=== PATIENT | male | born 1985 | race African-American/Black ===

== ENCOUNTER 2023-05-01 18:57 | Inpatient (IN) | payer OTHER ==
[2023-05-01 19:25] VITALS: BMI 25.0
[2023-05-02] MEDS ORDERED: guaiFENesin 600 MG TABLET.ER (FP) PO PRN (00:15)
[2023-05-02] MEDS ORDERED: ACETAMINOPHEN 325 MG TABLET (FP) PO PRN (00:15)
[2023-05-02] MEDS ORDERED: BENZONATATE 200 MG CAPSULE PO PRN (00:15)
[2023-05-02] MEDS ORDERED: BENZOCAINE/MENTHOL (CHLORASEPTIC ) LOZENGE MM PRN (00:15)
[2023-05-02] MEDS ORDERED: NICOTINE POLACRILEX 2 MG GUM BUC PRN (00:15)
[2023-05-02] MEDS ORDERED: NALOXONE HCL 0.4 MG/ML VIAL IM PRN (00:15)
[2023-05-02] MEDS ORDERED: POLYETHYLENE GLYCOL (HEALTHYLAX) 3350 17 GM PACKET PO PRN (00:15)
[2023-05-02] MEDS ORDERED: LOPERAMIDE HCL 2 MG CAPSULE PO PRN (00:15)
[2023-05-02] MEDS ORDERED: NALOXONE HCL (KLOXXADO) 8 MG SPRAY NS PRN (00:15)
[2023-05-02] MEDS ORDERED: IBUPROFEN 400 MG TABLET (FP) PO PRN (00:15)
[2023-05-02] MEDS ORDERED: IBUPROFEN 600 MG TABLET (FP) PO PRN (00:15)
[2023-05-02 10:05] LABS: HEMOGLOBIN 15.9 GM/dL (11.7-16.9); MCHC 35.2 g/dl (32.0-35.9); MEAN CELL VOLUME 90.8 fl (80-96); MEAN PLT VOLUME 10.1 fl (7.5-11.1); PLATELET COUNT 245 10^3/uL (134-434); RBC 4.96 M/mm3 (4.00-5.60); RDW 13.3 % (11.9-15.9); WHITE BLOOD COUNT 4.2 K/mm3 (4.0-10.0)
[2023-05-02 10:28] LABS: CHLORIDE 104 mmol/L (98-107); SODIUM 138 mmol/L (136-145)
[2023-05-02] MEDS: PRENATAL VITAMINS W/ FOLIC ACID TABLET (FP) PO SCH (10:28)
[2023-05-02] MEDS: NICOTINE 14 MG/24 HOURS TOPICAL PATCH TD SCH (10:28)
[2023-05-02 10:33] LABS: ANION GAP 7 mmol/L (4-13); BLOOD UREA NITROGEN 12.6 mg/dL (7-18); CALCIUM 9.2 mg/dL (8.5-10.1); CO2 27 mmol/L (21-32); GLUCOSE,RANDOM 95 mg/dL (74-106)
[2023-05-02 10:34] LABS: ALBUMIN 3.6 g/dl (3.4-5.0)
[2023-05-02 10:36] LABS: SGPT/ALT 21 U/L (13-61)
[2023-05-02 10:37] LABS: CREATININE 0.8 mg/dL (0.55-1.3); SGOT/AST 11 U/L (15-37)
[2023-05-02 10:38] LABS: BILIRUBIN,TOTAL 0.8 mg/dL (0.2-1); TOT PROT 6.8 g/dl (6.4-8.2)
[2023-05-02 10:39] LABS: ALK PHOS 103 U/L (45-117)
[2023-05-02 10:55] LABS: SYPHILIS W/ RPR CONF NON-REACTIVE (NONREACTIVE)
[2023-05-02 15:51] LABS: PH,URINE 5.5 (5.0-8.0); URINE APPEARANCE CLEAR; URINE BILIRUBIN NEGATIVE (NEGATIVE); URINE COLOR YELLOW; URINE GLUCOSE (UA) NEGATIVE (NEGATIVE); URINE KETONE NEGATIVE (NEGATIVE); URINE LEUK ESTERASE NEGATIVE (NEGATIVE); URINE NITRITE NEGATIVE (NEGATIVE); URINE PROTEIN NEGATIVE (NEGATIVE); URINE UROBILINOGEN 0.2 mg/dL (0.2-1.0)
[2023-05-02] MEDS: THIAMINE HCL 100 MG TABLET (FP) PO SCH (21:31)
[2023-05-02] MEDS: MELATONIN 5 MG TABLETS PO SCH (21:31)
[2023-05-10] MEDS: MELATONIN 5 MG TABLETS PO SCH (21:24)
[2023-05-11] MEDS: MAG HYDROX/AL HYDROX/SIMETH 30 ML UNIT-DOSE CUP PO PRN (01:58)
[2023-05-11] MEDS: MAGNESIUM HYDROX 2400MG/30ML ORAL SUSPENSION 30 ML CUP PO PRN (13:04)
[2023-05-15 06:33] VITALS: BP 137/87; PULSE 76; RESP 16; TEMP 98
== END 2023-05-15 09:20 | disposition home or self-care (01) | DRG 772 ==
LOC: YASAS 18:57 → Y3E 23:58
PROVIDERS: ADMIT Allergy & Immunology; ATTEND Psychiatry & Neurology Pain Medicine
PROC: HZ42ZZZ Group Counseling for Substance Abuse Treatment, Cognitive-Behavioral (ICD-10-PCS; principal; 2023-05-01)
DX: F14.20 Cocaine dependence, uncomplicated (principal); F12.20 Cannabis dependence, uncomplicated; F19.282 Other psychoactive substance dependence with psychoactive substance-induced sleep disorder
CPT/HCPCS: 36415; 71045-TC-FY; 80053; 80307; 81003; 85027; 86780; 86803; 87635; 87811; 93005; 93010